=== PATIENT | female | born 1950 | race American Indian/Alaskan Native ===

== ENCOUNTER 2016-07-04 08:18 | Outpatient (CLI) | payer MEDICARE ==
--- NOTE | 2016-07-04 14:37 | Mammography Report ---
BILATERAL DIGITAL SCREENING MAMMOGRAM with CAD: 07/04/16 08:18:00 CLINICAL: Routine screening. COMPARISON:06/29/15 FINDINGS: The breasts are almost entirely fatty. No mass, architectural distortion or suspicious calcifications. IMPRESSION: No mammographic evidence of malignancy. BI-RADS CATEGORY: 1 - - Negative RECOMMENDATION: Routine mammographic screening in one year. COMMENT: Patient follow-up letters are generated by our [employer] application.
== END 2016-07-04 08:19 | disposition home or self-care (01) ==
LOC: SPVWC 08:18
PROVIDERS: ATTEND Internal Medicine
DX: Z12.31 Encounter for screening mammogram for malignant neoplasm of breast (principal)
CPT/HCPCS: 77067; G0202

== ENCOUNTER 2017-07-22 08:46 | Outpatient (CLI) | payer MEDICARE ==
--- NOTE | 2017-07-22 10:47 | Mammography Report ---
BILATERAL MAMMOGRAM: FINDINGS: The breasts are almost entirely fat (<25% glandular). No mass, distortion, suspicious calcification, or skin change is seen. No significant change when compared to prior exam in June 2016. CAD was utilized. IMPRESSION: Negative mammogram. There is no mammographic evidence of malignancy. RECOMMENDATION: Follow-up per ACS guidelines. BI-RADS CATEGORY: 1 = Negative ACR BI-RADS MAMMOGRAPHIC CODES: 0 = Needs additional imaging evaluation; 1 = Negative; 2 = Benign; 3 = Probably benign; 4 = Suspicious; 5 = Malignant; 6 = Known biopsy-proven malignancy COMMENT: 1. Dense breast tissue, i.e., adenosis, fibrocystic changes, etc., may obscure an underlying neoplasm. 2. Approximately 10% of cancers are not detected with mammography. 3. A negative mammography report should not delay biopsy if a clinically suspicious mass is present. COMMENT: Patient follow-up letters are generated in [employer].
== END 2017-07-22 08:47 | disposition home or self-care (01) ==
LOC: SPVWC 08:46
PROVIDERS: ATTEND Internal Medicine
DX: Z12.31 Encounter for screening mammogram for malignant neoplasm of breast (principal)
CPT/HCPCS: 77067

== ENCOUNTER 2018-07-06 08:24 | Outpatient (CLI) | payer MEDICARE ==
--- NOTE | 2018-07-06 09:47 | XRay Report ---
XRAY RIGHT KNEE 3 THREE VIEWS: 07/06/18 08:24:00 CLINICAL: Pain. Patellar tendinitis. No comparison. FINDINGS: Mild osteopenia. Mild medial joint space narrowing with a medial osteophyte. The lateral joint is normal. Minimal patellofemoral joint arthritis. A large quadriceps tendon enthesophyte and moderate prepatellar soft tissue swelling. No joint effusion. No fracture or dislocation. No joint effusion. IMPRESSION: Patellar enthesopathy with associated prepatellar soft tissue edema. Mild osteoarthritis of the medial joint.
--- NOTE | 2018-07-06 10:20 | XRay Report ---
XRAY CERVICAL SPINE WITH OBLIQUES 5 VIEWS: 07/06/18 08:24:00 CLINICAL: Neck pain. FINDINGS: Normal vertebral body height and alignment. through T1. C5-6 degenerative disc disease with mild disc space narrowing and a large anterior osteophyte. The rest of the disc spaces are normal. Minimal facet joint sclerosis. The left neural foramina are widely patent. The right neural foramina are not optimally demonstrated. IMPRESSION: Moderate C5-6 degenerative disc disease and minimal facet joint disease.
== END 2018-07-06 08:25 | disposition home or self-care (01) ==
LOC: SPVIMAG 08:24
PROVIDERS: ATTEND Internal Medicine
DX: M50.322 Other cervical disc degeneration at C5-C6 level (principal); M48.02 Spinal stenosis, cervical region; M17.11 Unilateral primary osteoarthritis, right knee; M76.52 Patellar tendinitis, left knee
CPT/HCPCS: 72050

== ENCOUNTER 2021-04-02 14:48 | Outpatient (CLI) | payer MEDICARE ==
--- NOTE | 2021-04-02 16:01 | XRay Report ---
RIGHT SHOULDER 3 VIEWS INDICATION: RIGHT SHOULDER PAIN. COMPARISON: None. IMPRESSION: No acute osseous or soft tissue abnormality. Moderate acromioclavicular osteoarthriti s is identified. Signer Name: Alvino Escobar Jr, MD Signed: 04/02/2021 3:56 PM Workstation Name: [id number]
== END 2021-04-02 14:49 | disposition home or self-care (01) ==
LOC: XRAY 14:48
PROVIDERS: ATTEND Internal Medicine
DX: M19.011 Primary osteoarthritis, right shoulder (principal); M25.511 Pain in right shoulder